=== PATIENT | male | born 1945 | race Caucasian/White ===

== ENCOUNTER 2016-11-24 21:22 | Emergency (ER) | payer MEDICARE, BC, OTHER ==
[2016-11-24] MEDS ORDERED: ONDANSETRON 4 MG VIAL ONE (22:35)
[2016-11-24] MEDS ORDERED: Meclizine HCl 25 MG TAB ONE (22:36)
== END 2016-11-25 01:18 | disposition home or self-care (01) ==
LOC: ER 21:22
DX: R42 Dizziness and giddiness (principal); Z79.899 Other long term (current) drug therapy; I10 Essential (primary) hypertension; I25.10 Atherosclerotic heart disease of native coronary artery without angina pectoris
CPT/HCPCS: 36415; 70450; 80053; 82553; 83690; 84484; 85025; 93005; 96374; 99284; J2405